=== PATIENT | male | born 1970 | race Hispanic/Latino ===

== ENCOUNTER 2022-10-03 19:50 | Emergency (ER) | payer OTHER ==
[~2022-10-03] VITALS: Ht 167.6 cm; Wt 69.9 kg
[2022-10-03] MEDS ORDERED: FAMOTIDINE 20 MG/2 ML VIAL IV STA (20:23)
[2022-10-03] MEDS ORDERED: ONDANSETRON HCL INJ 2MG/ML 2ML 2 MG/ML VIAL IV STA (20:23)
[2022-10-03] MEDS ORDERED: SODIUM CHLORIDE 0.9% 1000ML 1,000 ML IV ONE (20:30)
[2022-10-03] MEDS ORDERED: FAMOTIDINE 20 MG/2 ML VIAL IV ONE (20:42)
[2022-10-03] MEDS ORDERED: SODIUM CHLORIDE 0.9% 1000ML 1,000 ML ONE (20:42)
[2022-10-03] MEDS ORDERED: ONDANSETRON HCL INJ 2MG/ML 2ML 2 MG/ML VIAL ONE (20:42)
[2022-10-03 21:36] LABS: BASOPHILS # (AUTO) 0.1 (0.0-0.1); BASOPHILS % 0.4 % (0.0-1.0); EOSINOPHILS % 0.3 % (0.0-6.0); LYMPHOCYTES # (AUTO) 1.2 (1.0-3.2); MEAN CORPUSCULAR HEMOGLOBIN 24.7 pg (28-32); MEAN CORPUSCULAR HGB CONC 31.1 g/dL (31-35); MEAN CORPUSCULAR VOLUME 79.2 fL (81-99); MONOCYTES # (AUTO) 0.6 (0.2-0.8); MONOCYTES % 4.7 % (4.4-11.3); NEUTROPHILS # (AUTO) 11.5 (2.1-6.9); NEUTROPHILS % 84.3 % (38.7-80.0); PLATELET COUNT 325 x10e3/uL (140-360); RED BLOOD COUNT 2.31 x10e6/uL (4.3-5.7); RED CELL DISTRIBUTION WIDTH 15.8 % (11.7-14.4)
[2022-10-03 21:48] LABS: HEMOGLOBIN 5.7 g/dL (14.0-18.0); INR 1.09; PROTHROMBIN TIME 14.6 seconds (11.9-14.5)
[2022-10-03 21:49] LABS: HEMATOCRIT 18.3 % (38.2-49.6); PARTIAL THROMBOPLASTIN TIME 29.8 seconds (23.8-35.5)
[2022-10-03 21:53] LABS: ALBUMIN 3.1 g/dL (3.5-5.0); ALBUMIN/GLOBULIN RATIO 1.1 (0.8-2.0); ANION GAP 13.8 mmol/L (8-16); CALCIUM 8.4 mg/dL (8.4-10.2); CREATININE, SERUM 3.58 mg/dL (0.72-1.25)
[2022-10-03 21:59] LABS: POTASSIUM 5.8 mmol/L (3.5-5.1)
[2022-10-03 22:01] LABS: CREATINE KINASE MB 1.8 ng/mL (0-5.0)
[2022-10-03] MEDS ORDERED: INSULIN REGULAR, HUMAN 100 UNIT/1 ML IV ONE (22:45)
[2022-10-03] MEDS ORDERED: INSULIN REGULAR, HUMAN 100 UNIT/1 ML ONE (22:52)
[2022-10-03] MEDS ORDERED: DEXTROSE 50% SYRINGE 50 ML IV ONE ×2 (22:53→23:00)
[2022-10-03] MEDS ORDERED: DEXTROSE 50% SYRINGE 50 ML IV STA (22:59)
[2022-10-04 01:20] VITALS: O2SAT 97
== END 2022-10-04 01:50 | disposition other institution (70) ==
LOC: FSED 20:06
DX: K92.1 Melena (principal); D64.9 Anemia, unspecified; E11.65 Type 2 diabetes mellitus with hyperglycemia; N17.9 Acute kidney failure, unspecified; I10 Essential (primary) hypertension; E78.5 Hyperlipidemia, unspecified; Z20.822 Contact with and (suspected) exposure to COVID-19; Z98.84 Bariatric surgery status
CPT/HCPCS: 36415; 71045; 74176; 80053; 80076; 81003; 82270; 82550; 82553; 82948; 83690; 84484; 85025; 85610; 85730; 86850; 86900; 93005; 99284; C9113; J2405; J7030; J7799; U0002